=== PATIENT | male | born 1975 | race Caucasian/White ===

== ENCOUNTER → 2021-01-26 | Outpatient (CLI) | payer BC ==
--- NOTE | 2021-01-26 18:10 | CONS ---
CONSULTATION DATE OF SERVICE: 01/26/2021 This 45-year-old gentleman has [facility] for obstructive sleep apnea-hypopnea syndrome. HISTORY OF PRESENT ILLNESS/SLEEP-WAKE EVALUATION: Patient was diagnosed with obstructive sleep apnea in 2011. He continues to use his CPAP equipment every night for the whole night. His sleep schedule is from 10:30 or 11 until 5:30 in the morning on weekdays, and the same schedule he has on weekends. No problems with falling asleep. He sleeps in different positions. According to his , he does not snore while he is using his CPAP. He wakes up from sleep up to 2 times with nocturia. No history of hypnagogic hallucinations, sleep paralysis or cataplexy. Since initiating CPAP treatment in 2011, the patient lost about 150 pounds. I checked his CPAP unit. Pressure is 16 cm of water. Usage is 100% of nights and 28/30 nights for more than 4 hours, average 6.6 hours per night. Leak is quite high at 72 L/minute. At the same time, apnea-hypopnea index is normal at 2.7. The patient uses a full-face mask. PAST MEDICAL HISTORY: Positive for asthma and allergies. PAST SURGICAL HISTORY: Pilonidal cyst removed. MEDICATIONS: Phentermine, montelukast, Adipex. REVIEW OF SYSTEMS: Occasional awakenings from sleep. No fevers. No double vision. No recent chest pain. No shortness of breath. No abdominal pain. No bleeding episodes. No blood in the urine. No seizure episodes. SOCIAL HISTORY: Negative for smoking or using alcohol. FAMILY HISTORY: Hypertension, heart problems, asthma, diabetes, thyroid problems, sleep apnea. PHYSICAL EXAMINATION: GENERAL: Pleasant gentleman without distress. VITAL SIGNS: BP 105/68, HR 68. RR 15, height 6 feet one-half inch, weight 256 pounds, body mass index 34.2, temperature 97.9, oxygen saturation at room air 97%. HEENT: PERRLA, EOMI, evaluation of oropharynx showed tongue protrudes midline. Extremely low position of soft palate; Mallampati IV. NECK: Supple, no JVD. Thyroid is not palpable. Neck is wide; 17-1/2 inches in circumference. LUNGS: Clear to percussion and to auscultation. Good air exchange. No wheezing or rhonchi. HEART: S1, S2 regular. No murmurs, gallops, or rubs. ABDOMEN: Soft and nontender. Bowel sounds are present. No organomegaly appreciated. EXTREMITIES: No clubbing or cyanosis. CABLE FERRYBOAT OPERATOR: Awake, alert, and oriented X3. Cranial nerves 2 to 7 intact. There is no fasciculation or atrophy. noted. No focal deficits observed. IMPRESSION: 1. Obstructive sleep apnea-hypopnea syndrome diagnosed 8 years ago in another institution. Patient continues to use his CPAP equipment every night for the whole night and demonstrated 100% compliance with treatment. Extremely low position of soft palate, Mallampati IV, wide neck. The patient never stopped using his machine after he lost 150 pounds. There is a possibility of improving his breathing after he lost weight. 1. Mild obesity. Present body mass index 34.2. 2. History of asthma. 3. Allergies. 4. Status post pilonidal cyst removed. 5. Possibly some insufficient sleep. PLAN: 1. We will repeat home sleep apnea test to check patient's breathing at the present time after he lost about 150 pounds. 2. I will see patient for follow-up visit to explain results of the test and following plan. 3. Increase time in bed to 7-1/2 hours per night. 4. Precautions related to driving. No driving if feeling sleepiness. 5. At present the patient will continue to use his CPAP equipment every night for the whole night. If his home sleep apnea test indicates that the patient still has sleep apnea after losing weight, pressure in the machine will possibly need to be adjusted. Thank you very much for referring this patient for consultation. Sincerely, Akil Moura MD, PhD, FAASM Diplomat of [place] [employer] Sleep Medicine Board of [place] [employer] Forensic Document Examiner of [facility] [place] MMODL / LEEROYN: [id number] /
== END ==
LOC: SLEEP 11:26
PROVIDERS: ATTEND Internal Medicine
DX: G47.33 Obstructive sleep apnea (adult) (pediatric) (principal); E66.9 Obesity, unspecified; J45.909 Unspecified asthma, uncomplicated; T78.40XA Allergy, unspecified, initial encounter; Z99.89 Dependence on other enabling machines and devices; Z68.34 Body mass index [BMI] 34.0-34.9, adult; Z98.890 Other specified postprocedural states
CPT/HCPCS: 99211

== ENCOUNTER 2021-05-27 07:37 | Day surgery (SDC) | payer BC, OTHER ==
[2021-05-25 13:01] VITALS: BMI 29.4
[~2021-05-27 07:37] MED LIST: LACTATED RINGERS 1,000 ML IV SCH
[2021-05-27 07:56] VITALS: RESP 16; TEMP 97.3
[2021-05-27] MEDS ORDERED: PROPOFOL 10 MG/ML 20 ML VIAL IV ONE (08:30)
--- NOTE | 2021-05-27 08:36 | P.HPIHPCON ---
History of Present Illness H&P Date: 05/27/21 45-year-old male presents today for screening colonoscopy. He has never had previous colonoscopy. He states his father does have a history of colon polyps. He denies any blood in his stool. Unknown family history of colon cancer. Consent for Procedure: I have explained the operation/procedure to the patient, including the risks, benefits, side effects, alternative therapies (including not receiving the proposed treatment or service), the likelihood of the patient achieving his/her goals, and potential recuperation problems for the procedure/sedation/analgesia, as well as any blood products, if indicated. I also explained to the patient the risks, benefits and side effects of the alternatives, as well as the risks related to not receiving the proposed procedure, care, treatment, or services. - Review of Systems All systems: negative Past Medical History Additional Past Medical History / Comment(s): SEASONAL ALLERGIES History of Any Multi-Drug Resistant Organisms: None Reported Additional Past Surgical History / Comment(s): PILONIDAL CYSTECTOMY Past Anesthesia/Blood Transfusion Reactions: No Reported Reaction Smoking Status: Former smoker - Past Family History Father Family Medical History: Cancer Additional Family Medical History / Comment(s): SKIN Medications and Allergies Home Medications Medication Instructions Recorded Confirmed Type Montelukast [Singulair] 10 mg PO HS 05/25/21 05/27/21 History Allergies Allergy/AdvReac Type Severity Reaction Status Date / Time No Known Allergies Allergy Verified 05/25/21 12:57 Surgical - Exam Osteopathic Statement: *. No significant issues noted on an osteopathic structural exam other than those noted in the History and Physical/Consult. Vital Signs Temp Pulse Resp BP Pulse Ox 97.3 F L 93 16 132/84 97 05/27/21 07:55 05/27/21 07:55 05/27/21 07:55 05/27/21 07:55 05/27/21 07:55 - General well nourished, no distress - Eyes normal ocular movement - ENT no hearing loss - Neck trachea midline - Respiratory normal respiratory effort - Abdomen Abdomen: soft, non tender Assessment and Plan Plan: 45-year-old male presents for screening colonoscopy. Risks, benefits and alternatives were presented to the patient. Further recommendations to be made after procedure. Patient is agreeable with plan.
--- NOTE | 2021-05-27 08:51 | P.PCN ---
Date of Procedure: 05/27/21 Preoperative Diagnosis: Screening Postoperative Diagnosis: Overall, normal colon Procedure(s) Performed: Colonoscopy Anesthesia: MAC Surgeon: Marge Magana Pathology: none sent Condition: stable Disposition: same day Indications for Procedure: 45-year-old male presents today for screening colonoscopy. Risks, benefits and alternatives were provided. Operative Findings: Overall, normal: Mild internal hemorrhoids Description of Procedure: The patient was brought to the endoscopy suite and placed in left lateral decubitus position and adequate sedation was achieved using conscious sedation. A digital rectal exam was performed and mild internal hemorrhoids palpated. An endoscope was then placed in the rectum and advanced to the cecum as identified by limits including the appendiceal orifice and the ileocecal valve. The prep was good. The colon scope was then slowly withdrawn, examining for any mucosal or values. The cecum, ascending, transverse, descending and sigmoid colon were visualized adequately. There were no obvious neoplastic lesions throughout the colon. There are no obvious polyps noted throughout the colon. There is no significant evidence of diverticulosis. Retroflexion was performed in the rectum and internal hemorrhoids were visible. Excess air was removed, the colonoscope withdrawn and the procedure terminated. The patient was then transferred to the recovery unit in stable condition. Repeat colonoscopy should be performed in 8 years.
[2021-05-27 09:03] VITALS: BP 108/78; PULSE 70
== END 2021-05-27 09:23 | disposition home or self-care (01) ==
LOC: ORWHC2ENDO 07:37
PROVIDERS: ATTEND Surgery
DX: Z12.11 Encounter for screening for malignant neoplasm of colon (principal); K64.8 Other hemorrhoids; J30.2 Other seasonal allergic rhinitis; Z98.890 Other specified postprocedural states; K13.3 Hairy leukoplakia; Z80.8 Family history of malignant neoplasm of other organs or systems; Z79.899 Other long term (current) drug therapy
CPT/HCPCS: J2704; G0121

== ENCOUNTER 2022-12-29 16:10 | Emergency (ER) | payer OTHER ==
[2022-12-29 16:51] VITALS: RESP 22; TEMP 98.7
[2022-12-29 17:58] LABS: Basophils # (A) 0.1 k/uL (0-0.2); Basophils % (A) 0 %; Eosinophils # (A) 0.1 k/uL (0-0.7); Eosinophils % (A) 1 %; HCT 46.9 % (39.0-53.0); HGB 15.5 gm/dL (13.0-17.5); Lymphocytes # (A) 1.5 k/uL (1.0-4.8); Lymphocytes % (A) 10 %; MCH 30.8 pg (25.0-35.0); MCHC 32.9 g/dL (31.0-37.0); MCV 93.5 fL (80.0-100.0); Mean Platelet Volume 7.4; Monocytes # (A) 1.1 k/uL (0-1.0); Monocytes % (A) 7 %; Neutrophils # (A) 12.5 k/uL (1.3-7.7); Neutrophils % (A) 81 %; Platelet Count 350 k/uL (150-450); RBC 5.02 m/uL (4.30-5.90); RDW 12.9 % (11.5-15.5); WBC 15.6 k/uL (3.8-10.6)
[2022-12-29 18:08] LABS: ALT 17 U/L (4-49); AST 21 U/L (17-59); African American GFR (CKD) >90 (>60 ml/min/1.73 sqM); Albumin 4.7 g/dL (3.5-5.0); Alkaline Phosphatase 61 U/L (38-126); Anion Gap 11 mmol/L; Blood Urea Nitrogen 10 mg/dL (9-20); Calcium 9.8 mg/dL (8.4-10.2); Carbon Dioxide 27 mmol/L (22-30); Chloride 101 mmol/L (98-107); Glucose 87 mg/dL (74-99); Non-African American GFR(CKD) >90 (>60 ml/min/1.73 sqM); Potassium 4.4 mmol/L (3.5-5.1); Sodium 139 mmol/L (137-145); Total Bilirubin 1.6 mg/dL (0.2-1.3); Total Protein 7.7 g/dL (6.3-8.2)
[2022-12-29] MEDS ORDERED: KETOROLAC 15 MG/ML 1 ML VIAL IVP STA (19:28)
[2022-12-29] MEDS ORDERED: SODIUM CHLORIDE 0.9% 1,000 ML IV STA (19:28)
[2022-12-29] MEDS ORDERED: ONDANSETRON 4 MG/2 ML VIAL IVP STA (19:29)
--- NOTE | 2022-12-29 19:33 | ED ---
ENT HPI - General Chief complaint: ENT Stated complaint: Swollen Neck Time Seen by Provider: 12/29/22 19:10 Source: patient Mode of arrival: ambulatory Limitations: no limitations - History of Present Illness Initial comments: 47-year-old male presents to the ED with a chief complaint of sore throat. Patient states 3 days ago started to experience swelling and pain of the left side of his face especially of his throat and tongue. Since onset patient reports symptoms worsen in severity. Last night states that his voices started to become muffled and went to a walk-in clinic. Was prescribed antibiotics and reports that he has been taking this however since last night patient and patient's reports that his voice has become deeper and pain has increased in severity. Additionally, patient notes that he is having difficulties swallowing his spit now. Denies fever but notes chills. No chest pain or shortness of breath. No other complaints. - Related Data Home Medications Medication Instructions Recorded Confirmed EPINEPHrine (Auto Inject) [Epipen] 0.3 mg IM ONCE PRN 12/29/22 12/29/22 Penicillin V Potassium [Pen Vee K] 500 mg PO BID 12/29/22 12/29/22 Ubrogepant [Ubrelvy] 50 mg PO BID PRN 12/29/22 12/29/22 Allergies Allergy/AdvReac Type Severity Reaction Status Date / Time No Known Allergies Allergy Verified 12/29/22 22:36 Review of Systems ROS Statement: Those systems with pertinent positive or pertinent negative responses have been documented in the HPI. ROS Other: All systems not noted in ROS Statement are negative. Past Medical History Additional Past Medical History / Comment(s): SEASONAL ALLERGIES History of Any Multi-Drug Resistant Organisms: None Reported Additional Past Surgical History / Comment(s): PILONIDAL CYSTECTOMY Past Anesthesia/Blood Transfusion Reactions: No Reported Reaction Past Psychological History: No Psychological Hx Reported Smoking Status: Former smoker - Past Family History Father Family Medical History: Cancer Additional Family Medical History / Comment(s): SKIN General Exam Limitations: no limitations Head exam: Present: atraumatic, normocephalic ENT exam: Present: other (Limited range of motion of his mouth secondary to pain. Unable to visualize the uvula due to the limited range. Upon depressing tongue asymmetry of left palatoglossal arch) Respiratory exam: Present: normal lung sounds bilaterally Cardiovascular Exam: Present: regular rate, normal rhythm GI/Abdominal exam: Present: soft Neurological exam: Present: alert, oriented X3 Skin exam: Present: warm, dry Course Vital Signs 12/29/22 12/30/22 16:34 01:50 Temperature 98.7 F Pulse Rate 100 73 Respiratory 22 Rate Blood Pressure 126/70 117/68 O2 Sat by Pulse 99 Oximetry Medical Decision Making - Medical Decision Making Was pt. sent in by a medical professional or institution (, PA, GROMMET MAN, urgent care, hospital, or snf...) When possible be specific @ -No Did you speak to anyone other than the patient for history (EMS, parent, family, police, friend...)? What history was obtained from this source @ -No Did you review nursing and triage notes (agree or disagree)? Why? @ -I reviewed and agree with nursing and triage notes Were old charts reviewed (outside hosp., previous admission, EMS record, old EKG, old radiological studies, urgent care reports/EKG's, snf records)? Report findings @ -No old charts were reviewed Differential Diagnosis (chest pain, altered mental status, abdominal pain women, abdominal pain men, vaginal bleeding, weakness, fever, dyspnea, syncope, headache, dizziness, GI bleed, back pain, seizure, CVA, palpatations, mental health, musculoskeletal)? @ -Streptococcal pharyngitis, mumps, peritonsillar abscess, oropharyngeal abscess. This is not meant to be an all-inclusive list. EKG interpreted by me (3pts min.). @ -None X-rays interpreted by me (1pt min.). @ -None done CT interpreted by me (1pt min.). @ -CT interpreted by me as significant for soft tissue swelling with lobulated fluid collection in the left neck with additional lesser inflammatory phlegmon extending inferiorly along the left-sided airway to the level of the larynx. Soft tissue fluid collection measuring approximately 2.7 x 2.6 x 3.1 cm. U/S interpreted by me (1pt. min.). @ -None done What testing was considered but not performed or refused? (CT, X-rays, U/S, labs)? Why? @ -None What meds were considered but not given or refused? Why? @ -None Did you discuss the management of the patient with other professionals (professionals i.e. , PA, GROMMET MAN, lab, RT, psych nurse, social insurance administrator, ethologist, teacher, traffic division commanding officer, case operator)? Give summary @ -Discussed with Dr. Jimenez of ENT. Due to CT finding concerning for possible airway compromise reported that would feel more comfortable with the patient being transferred over to [facility] however if unable to be transferred would be able to accept admission of the patient here. Spoke to Dr. Thurman of [facility], who accepted patient. Was smoking cessation discussed for >3mins.? @ -No Was critical care preformed (if so, how long)? @ -No Were there social determinants of health that impacted care today? How? (Homelessness, low income, unemployed, alcoholism, drug addiction, transportation, low edu. Level, literacy, decrease access to med. care, half-way, rehab)? @ -No Was there de-escalation of care discussed even if they declined (Discuss DNR or withdrawal of care, Hospice)? DNR status @ -No What co-morbidities impacted this encounter? (DM, HTN, Smoking, COPD, CAD, C ancer, CVA, ARF, Chemo, Hep., AIDS, mental health diagnosis, sleep apnea, morbid obesity)? @ -None Was patient admitted / discharged? Hospital course, mention meds given and route, prescriptions, significant lab abnormalities, going to OR and other pertinent info. @ -Transfer 47-year-old male presenting to the ED with 2-3 days of progressively worsening sore throat/facial swelling on the left. Laboratory studies significant for an elevated white blood cell count at 15.6, elevated neutrophils at 12.5. History panel unremarkable. Negative for coronavirus. Negative for strep. CT did show peritonsillar abscess with additional collection on the left-sided neck at the level of the larynx. Patient provided 15 mg Toradol, 10 mg Decadron, started on Unasyn 3 g, and given a dose of morphine 4 mg IV here in the ED. Patient transferred over to [facility] for further evaluation. Undiagnosed new problem with uncertain prognosis? @ -No Drug Therapy requiring intensive monitoring for toxicity (Heparin, Nitro, Insulin, Cardizem)? @ -No Were any procedures done? @ -No Diagnosis/symptom? @ -Left INTERNATIONAL TRADE SPECIALIST Acute, or Chronic, or Acute on Chronic? @ -Acute Uncomplicated (without systemic symptoms) or Complicated (systemic symptoms)? @ -Complicated Side effects of treatment? @ -No Exacerbation, Progression, or Severe Exacerbation? @ -No Poses a threat to life or bodily function? How? (Chest pain, USA, NC, pneumonia, PE, COPD, DKA, ARF, appy, cholecystitis, CVA, Diverticulitis, Homicidal, Suicidal, threat to staff... and all critical care pts) @ -Yes, airway compromise - Lab Data Result diagrams: 12/29/22 17:44 12/29/22 17:44 Lab Results 12/29/22 12/29/22 12/29/22 Range/Units 17:44 17:44 17:44 WBC 15.6 H (3.8-10.6) k/uL RBC 5.02 (4.30-5.90) m/uL Hgb 15.5 (13.0-17.5) gm/dL Hct 46.9 (39.0-53.0) % MCV 93.5 (80.0-100.0) fL MCH 30.8 (25.0-35.0) pg MCHC 32.9 (31.0-37.0) g/dL RDW 12.9 (11.5-15.5) % Plt Count 350 (150-450) k/uL MPV 7.4 Neutrophils % 81 % Lymphocytes % 10 % Monocytes % 7 % Eosinophils % 1 % Basophils % 0 % Neutrophils # 12.5 H (1.3-7.7) k/uL Lymphocytes # 1.5 (1.0-4.8) k/uL Monocytes # 1.1 H (0-1.0) k/uL Eosinophils # 0.1 (0-0.7) k/uL Basophils # 0.1 (0-0.2) k/uL Sodium 139 (137-145) mmol/L Potassium 4.4 (3.5-5.1) mmol/L Chloride 101 (98-107) mmol/L Carbon Dioxide 27 (22-30) mmol/L Anion Gap 11 mmol/L BUN 10 (9-20) mg/dL Creatinine 0.74 (0.66-1.25) mg/dL Est GFR (CKD-EPI)AfAm >90 (>60 ml/min/1.73 sqM) Est GFR (CKD-EPI)NonAf >90 (>60 ml/min/1.73 sqM) Glucose 87 (74-99) mg/dL Calcium 9.8 (8.4-10.2) mg/dL Total Bilirubin 1.6 H (0.2-1.3) mg/dL AST 21 (17-59) U/L ALT 17 (4-49) U/L Alkaline Phosphatase 61 (38-126) U/L Total Protein 7.7 (6.3-8.2) g/dL Albumin 4.7 (3.5-5.0) g/dL Coronavirus (PCR) (Not Detectd) Group A Strep (PCR) NOT DETECTED (Not Detectd) 12/29/22 Range/Units 17:44 WBC (3.8-10.6) k/uL RBC (4.30-5.90) m/uL Hgb (13.0-17.5) gm/dL Hct (39.0-53.0) % MCV (80.0-100.0) fL MCH (25.0-35.0) pg MCHC (31.0-37.0) g/dL RDW (11.5-15.5) % Plt Count (150-450) k/uL MPV Neutrophils % % Lymphocytes % % Monocytes % % Eosinophils % % Basophils % % Neutrophils # (1.3-7.7) k/uL Lymphocytes # (1.0-4.8) k/uL Monocytes # (0-1.0) k/uL Eosinophils # (0-0.7) k/uL Basophils # (0-0.2) k/uL Sodium (137-145) mmol/L Potassium (3.5-5.1) mmol/L Chloride (98-107) mmol/L Carbon Dioxide (22-30) mmol/L Anion Gap mmol/L BUN (9-20) mg/dL Creatinine (0.66-1.25) mg/dL Est GFR (CKD-EPI)AfAm (>60 ml/min/1.73 sqM) Est GFR (CKD-EPI)NonAf (>60 ml/min/1.73 sqM) Glucose (74-99) mg/dL Calcium (8.4-10.2) mg/dL Total Bilirubin (0.2-1.3) mg/dL AST (17-59) U/L ALT (4-49) U/L Alkaline Phosphatase (38-126) U/L Total Protein (6.3-8.2) g/dL Albumin (3.5-5.0) g/dL Coronavirus (PCR) Not Detected (Not Detectd) Group A Strep (PCR) (Not Detectd) Disposition Clinical Impression: Peritonsillar abscess Disposition: OTHER INSTITUTION NOT DEFINED Condition: Fair Referrals: Gonzalo Dale DO [Primary Care Provider] - 1-2 days - Out of Hospital Transfer - Req. Specs Out of Hospital Transfer - Requested Specifics: Other Emergency Center ([facility])
[2022-12-29] MEDS ORDERED: DEXAMETHASONE SOD PHOSPHATE 10 MG/ML 1 ML VIAL IVP STA (22:07)
--- NOTE | 2022-12-29 22:52 | CT ---
EXAMINATION TYPE: CT neck chest w con CT DLP: 944.5 mGycm, Automated exposure control for dose reduction was used. DATE OF EXAM: 12/29/2022 7:22 PM COMPARISON: None. CLINICAL INDICATION:Male, 47 years old with history of r/out peritonsillar abscess;, R/O peritonsilla r abscess, swollen throat and tongue x2days. TECHNIQUE: Standard enhanced CT of the neck and chest. Axial sections with coronal and sagittal refo rmats were obtained. Contrast used:100 ml mL of Isovue 300 with IV Contrast, (none if empty) Oral contrast used: (none if empty) FINDINGS: Brain: Visualized portions are grossly unremarkable. Orbits: Unremarkable Sinuses: Grossly unremarkable. Soft tissues/spaces of the neck: Soft tissue swelling with lobulated fluid collection in the left per itonsillar region with enhancing peripheral rim. Difficult to measure precisely but is up to approxim ately 2.7 x 2.6 cm axially and about 3.1 cm craniocaudally. Additional lesser inflammatory tissue is seen extending inferiorly along the left side of the airway to near the level of the larynx, with par tial obscuration of the vallecula and piriform sinus. Musculoskeletal: No acute osseous abnormality is identified. Streak artifact from dental hardware tiffany ewhat limits evaluation of the regional soft tissues. Lymph nodes: Multiple nonenlarged lymph nodes are seen along both anterior chains of the neck. Vascular structures: Visualized major arteries are patent without evidence of aneurysm. Thoracic Inlet/airway: The airway appears patent, however slightly narrowed and deflected towards the right secondary to the above. Thyroid: Appears normal in size and configuration, with a possible 1.3 cm relatively hypodense nodule deep in the right lobe, but assessment is limited. Other: None. LUNGS/ PLEURA: The lung parenchyma appears unremarkable. No pleural effusion or pneumothorax. AIRWAY: Patent and unremarkable within the chest. HEART: Size within normal limits. MEDIASTINUM: No gross evidence of adenopathy. VASCULATURE: Aorta is unremarkable without evidence of aneurysm. Grossly preserved enhancement of t he pulmonary arteries in the limits of the exam. MUSCULOSKELETAL: No acute osseous abnormalities. Mild degenerative changes of the thoracic spine. SOFT TISSUES/LYMPH NODES: Unremarkable. UPPER ABDOMEN: No significant findings. IMPRESSION 1. Soft tissue swelling with lobulated fluid collection in the left neck, likely peritonsillar absce ss. Necrotic mass or adenopathy could have a similar appearance. 2. Additional lesser inflammatory tissue/phlegmon extends inferiorly along the left side of the airw ay to near the level of the larynx. 3. Airway is patent, however slightly narrowed and deflected towards the right secondary to the abov e. 4. Possible 1.3 cm relatively hypodense right thyroid nodule. This could be further assessed with o utpatient TFTs and ultrasound.
[2022-12-29] MEDS ORDERED: AMPICILLIN-SULBACTAM 3 GM in SODIUM CHLORIDE 0.9% 100 ML IVPB STA (23:27)
[2022-12-29] MEDS ORDERED: MORPHINE SULFATE 4 MG/ML SYRINGE IVP STA (23:49)
[2022-12-30 02:07] VITALS: BP 117/68; PULSE 73
== END 2022-12-30 01:54 | disposition other institution (70) ==
LOC: EC 16:10
DX: J36 Peritonsillar abscess (principal); Z87.891 Personal history of nicotine dependence; Z20.822 Contact with and (suspected) exposure to COVID-19
CPT/HCPCS: 99285 ×2; 96365 ×2; 96375 ×6; 96361 ×2; 36415; 87651; 80053; 85025; 87040; 87635; 70491; 71260; J2270; J1100; J2405; J0295; J1885; Q9967

== ENCOUNTER 2023-10-06 13:22 | Emergency (ER) | payer OTHER ==
[2023-10-06 13:38] VITALS: BP 124/70; PULSE 77; RESP 18; TEMP 98
--- NOTE | 2023-10-06 14:26 | XR ---
EXAMINATION TYPE: XR ribs LT w pa chest xray DATE OF EXAM: 10/06/2023 2:19 PM CLINICAL INDICATION:Male, 47 years old with history of pain; COMPARISON: None TECHNIQUE: XR ribs LT w pa chest xray; Frontal and oblique views of the ribs with frontal chest radio graph. FINDINGS: The ribs have a normal appearance. No evidence of fracture. Overall, the lungs are clear. The cardiac silhouette is normal in size. The remaining osseous structures are intact. IMPRESSION: No acute osseous pathology.
--- NOTE | 2023-10-06 14:48 | ED ---
General Adult HPI - General Chief complaint: Recheck/Abnormal Lab/Rx Stated complaint: Broken left rib Time Seen by Provider: 10/06/23 13:50 Source: patient, RN notes reviewed, old records reviewed Mode of arrival: ambulatory Limitations: no limitations - History of Present Illness Initial comments: 47-year-old male presenting with left lateral chest wall pain. Patient states that 1 week ago he was roughhousing with his son, he states his son and squeezed around his chest causing some pain. Today while moving furniture he felt a popping sensation in the left lateral chest wall and was concerned this could be fractured rib. No difficulty breathing. No central chest pain. Patient is otherwise healthy. - Related Data Home Medications Medication Instructions Recorded Confirmed EPINEPHrine (Auto Inject) [Epipen] 0.3 mg IM ONCE PRN 12/29/22 12/29/22 Penicillin V Potassium [Pen Vee K] 500 mg PO BID 12/29/22 12/29/22 Ubrogepant [Ubrelvy] 50 mg PO BID PRN 12/29/22 12/29/22 Allergies Allergy/AdvReac Type Severity Reaction Status Date / Time No Known Allergies Allergy Verified 10/06/23 13:37 Review of Systems ROS Statement: Those systems with pertinent positive or pertinent negative responses have been documented in the HPI. ROS Other: All systems not noted in ROS Statement are negative. Past Medical History Additional Past Medical History / Comment(s): SEASONAL ALLERGIES History of Any Multi-Drug Resistant Organisms: None Reported Additional Past Surgical History / Comment(s): PILONIDAL CYSTECTOMY Past Anesthesia/Blood Transfusion Reactions: No Reported Reaction Past Psychological History: No Psychological Hx Reported Smoking Status: Former smoker Past Alcohol Use History: None Reported Past Drug Use History: None Reported - Past Family History Father Family Medical History: Cancer Additional Family Medical History / Comment(s): SKIN General Exam Limitations: no limitations General appearance: alert, in no apparent distress Head exam: Present: atraumatic, normocephalic Eye exam: Present: normal appearance, PERRL ENT exam: Present: normal exam Neck exam: Present: normal inspection. Absent: tenderness Respiratory exam: Present: chest wall tenderness (Focal tenderness over the left lateral chest wall, no crepitus). Absent: respiratory distress, wheezes, rales, rhonchi Cardiovascular Exam: Present: regular rate, normal rhythm GI/Abdominal exam: Present: soft. Absent: distended, tenderness, guarding Course Vital Signs 10/06/23 13:33 Temperature 98 F Pulse Rate 77 Respiratory 18 Rate Blood Pressure 124/70 O2 Sat by Pulse 98 Oximetry Medical Decision Making - Medical Decision Making Was pt. sent in by a medical professional or institution (, [facility], [employer] PROFESSION[employer], urgent care, hospital, or fdc...) When possible be specific @ -No Did you speak to anyone other than the patient for history (EMS, parent, family, police, friend...)? What history was obtained from this source @ -No Did you review nursing and triage notes (agree or disagree)? Why? @ -I reviewed and agree with nursing and triage notes Were old charts reviewed (outside hosp., previous admission, EMS record, old EKG, old radiological studies, urgent care reports/EKG's, fdc records)? Report findings @ -No old charts were reviewed Differential Diagnosis: Pneumothorax, displaced rib fracture, chest wall strain EKG interpreted by me (3pts min.). @ -As above X-rays interpreted by me (1pt min.). @X-ray of the left-sided ribs and PA chest is without displaced rib fracture, no pneumothorax, no acute findings. CT interpreted by me (1pt min.). @ -None done U/S interpreted by me (1pt. min.). @ -None done What testing was considered but not performed or refused? (CT, X-rays, U/S, labs)? Why? @ -None What meds were considered but not given or refused? Why? @ -None Did you discuss the management of the patient with other professionals (professionals i.e. , [facility], [employer] PROFESSION[employer], lab, RT, psych nurse, social services specialist, pulmonologist, teacher, fisheries enforcement officer, family preservation caseworker)? Give summary @ -No Was smoking cessation discussed for >3mins.? @ -No Was critical care preformed (if so, how long)? @ -No Were there social determinants of health that impacted care today? How? (Homelessness, low income, unemployed, alcoholism, drug addiction, transportation, low edu. Level, literacy, decrease access to med. care, [facility], rehab)? @ -No Was there de-escalation of care discussed even if they declined (Discuss DNR or withdrawal of care, Hospice)? DNR status @ -No What co-morbidities impacted this encounter? (DM, HTN, Smoking, COPD, CAD, Ca ncer, CVA, ARF, Chemo, Hep., AIDS, mental health diagnosis, sleep apnea, morbid obesity)? @ -None Was patient admitted / discharged? Hospital course, mention meds given and route, prescriptions, significant lab abnormalities, going to OR and other pertinent info. @ -47-year-old male with lateral chest wall pain concerning for rib fracture. There is focal tenderness on exam. No ACS symptoms. Vital signs are stable. Chest x-ray is negative for displaced rib fracture. Patient will take [id number] Tylenol Motrin for pain. He will follow closely with his primary care provider. If symptoms should worsen or change in any way he will return to the emergency department. Undiagnosed new problem with uncertain prognosis? @ -No Drug Therapy requiring intensive monitoring for toxicity (Heparin, Nitro, Insulin, Cardizem)? @ -No Were any procedures done? @ -No Diagnosis/symptom? @Chest wall strain Acute, or Chronic, or Acute on Chronic? @ -Acute Uncomplicated (without systemic symptoms) or Complicated (systemic symptoms)? @ -Default Side effects of treatment? @ -No Exacerbation, Progression, or Severe Exacerbation? @ -No Poses a threat to life or bodily function? How? (Chest pain, USA, IA, pneumonia, PE, COPD, DKA, ARF, appy, cholecystitis, CVA, Diverticulitis, Homicidal, Suicidal, threat to staff... and all critical care pts) @ -No Disposition Clinical Impression: Chest wall pain Disposition: HOME SELF-CARE Condition: Fair Instructions (If sedation given, give patient instructions): Rib Contusion (ED) Is patient prescribed a controlled substance at d/c from ED?: No Referrals: Gonzalo Dale DO [Primary Care Provider] - 1-2 days Time of Disposition: 14:48
== END 2023-10-06 15:18 | disposition home or self-care (01) ==
LOC: EC 13:22
DX: S29.011A Strain of muscle and tendon of front wall of thorax, initial encounter (principal); Z87.891 Personal history of nicotine dependence; X58.XXXA Exposure to other specified factors, initial encounter; Y93.83 Activity, rough housing and horseplay
CPT/HCPCS: 99283